=== PATIENT | female | born 1965 | race American Indian/Alaskan Native ===

== ENCOUNTER 2019-06-19 11:50 | Emergency (ER) | payer BC ==
[2019-06-19] MEDS ORDERED: FIORICET PO ONE (12:39)
--- NOTE | 2019-06-19 13:04 | Emergency Department Report ---
HPI - General Chief Complaint: Anxiety Time Seen by Provider: 06/19/19 12:33 - HPI HPI: Room 25 The patient is a 53-year-old female presenting with a chief complaint of near syncopal episode. The patient is the daughter the patient currently in room 21. The patient's father is critically ill at the time of evaluation patient's father was DO NOT RESUSCITATE. She states she visualized her father. Breathing and this made her feel short of breath. Patient states she stood up and felt lightheaded went to the ground and sat on the floor. The patient states she never lost consciousness. The patient states she was awake but her eyes were closed and she could hear everything. The patient now complains of headache and gives it a score of 6/10 Location: [See above] Duration: [See above] Quality: [See above] Severity: [See above] Timing: [See above] Context: [See above] Modifying factors: [See above] Associated signs and symptoms: [see above] ED Past Medical Hx - Past Medical History Previous Medical History?: Yes Hx Hypertension: Yes (27 YEARS, Denies CP) Hx Asthma: No Additional medical history: anxiety - Surgical History Past Surgical History?: Yes Hx Cholecystectomy: Yes (2010) Additional Surgical History: Right ankle surgery - Family History Family history: no significant - Social History Smoking Status: Never Smoker Substance Use Type: None (denies illicit drug use) - Medications Home Medications: Home Medications Medication Instructions Recorded Confirmed Last Taken Type Triamter/Hctz 75-50 mg (Nf) 1 tab PO QDAY 10/08/14 10/22/14 10/21/14 07:30 History [Maxzide 75-50 mg] HYDROcodone/APAP 5-325 [[place] 1 each PO Q6HR PRN #60 tablet 10/22/14 Unknown Rx 5-325 mg TAB] ED Review of Systems ROS: Stated complaint: PASSED OUT Other details as noted in HPI Constitutional: no symptoms reported Eyes: denies: eye pain ENT: denies: throat pain Respiratory: shortness of breath Cardiovascular: denies: chest pain Endocrine: no symptoms reported Gastrointestinal: denies: abdominal pain Genitourinary: denies: dysuria Musculoskeletal: denies: back pain Neurological: other (lightheadedness) Physical Exam - Physical Exam Vital Signs: Vital Signs 06/19/19 11:50 Temperature 98.3 F Pulse Rate 94 H Respiratory 20 Rate Blood Pressure 169/70 O2 Sat by Pulse 98 Oximetry Vital Signs 06/19/19 06/19/19 06/19/19 11:50 11:54 12:00 Temperature 98.3 F Pulse Rate 94 H Pulse Rate [ Lying] Respiratory 20 Rate Blood Pressure 169/70 169/70 148/86 Blood Pressure [Lying] O2 Sat by Pulse 98 Oximetry 06/19/19 06/19/19 06/19/19 12:16 12:30 12:46 Temperature Pulse Rate 93 H 97 H 93 H Pulse Rate [ Lying] Respiratory 16 17 16 Rate Blood Pressure 148/86 157/92 157/92 Blood Pressure [Lying] O2 Sat by Pulse 100 100 99 Oximetry 06/19/19 06/19/19 06/19/19 13:00 13:16 13:30 Temperature Pulse Rate 91 H 95 H Pulse Rate [ Lying] Respiratory 10 L 14 Rate Blood Pressure 151/91 151/91 151/91 Blood Pressure [Lying] O2 Sat by Pulse 100 100 Oximetry 06/19/19 06/19/19 06/19/19 13:46 14:00 14:16 Temperature Pulse Rate 85 101 H 82 Pulse Rate [ Lying] Respiratory 12 13 11 L Rate Blood Pressure 151/91 162/92 162/92 Blood Pressure [Lying] O2 Sat by Pulse 100 99 100 Oximetry 06/19/19 06/19/19 14:30 14:59 Temperature Pulse Rate 81 Pulse Rate [ 84 Lying] Respiratory 11 L Rate Blood Pressure 167/92 Blood Pressure 149/76 [Lying] O2 Sat by Pulse 100 Oximetry Physical Exam: GENERAL: The patient is well-developed well-nourished female lying on stretcher not appearing to be in acute distress. [] HEENT: Normocephalic. Atraumatic. Extraocular motions are intact. Patient has moist mucous membranes. NECK: Supple. Trachea midline. No axial tenderness to palpation CHEST/LUNGS: Clear to auscultation. There is no respiratory distress noted. HEART/CARDIOVASCULAR: Regular. There is no tachycardia. There is no gallop rub or murmur. ABDOMEN: Abdomen is soft, nontender. Patient has normal bowel sounds. There is no abdominal distention. SKIN: There is no rash. There is no edema. There is no diaphoresis. NEURO: The patient is awake, alert, and oriented. The patient is cooperative. The patient has no focal neurologic deficits. The patient has normal speech. Cranial nerves II through XII grossly intact, no drift MUSCULOSKELETAL: There is no evidence of acute injury. ED Course Vital Signs 06/19/19 11:50 Temperature 98.3 F Pulse Rate 94 H Respiratory 20 Rate Blood Pressure 169/70 O2 Sat by Pulse 98 Oximetry - Reevaluation(s) Reevaluation #1: 06/19/19 14:[address] head ED Medical Decision Making - Lab Data Result diagrams: 06/19/19 13:13 06/19/19 13:13 Laboratory Tests 06/19/19 06/19/19 06/19/19 12:05 13:13 13:13 WBC 5.3 RBC 4.58 Hgb 13.5 Hct 39.9 MCV 87 MCH 30 MCHC 34 RDW 14.1 Plt Count 170 Lymph % (Auto) 34.7 [place] % (Auto) 6.1 Eos % (Auto) 0.8 Baso % (Auto) 1.7 Lymph # 1.8 [place] # 0.3 Eos # 0.0 Baso # 0.1 Seg Neutrophils % 56.7 Seg Neutrophils # 3.0 Sodium 142 Potassium 3.1 L Chloride 101.1 Carbon Dioxide 27 Anion Gap 17 BUN 10 Creatinine 1.0 Estimated GFR > 60 BUN/Creatinine Ratio 10 Glucose 112 H POC Glucose 97 Calcium 9.7 Total Creatine Kinase 144 H CK-MB (CK-2) 2.8 CK-MB (CK-2) Rel Index 1.9 Troponin T < 0.010 - Differential Diagnosis vasovagal episode, dysrhythmia, electrolyte imbalance Critical care attestation.: If time is entered above; I have spent that time in minutes in the direct care of this critically ill patient, excluding procedure time. ED Disposition Clinical Impression: Vasovagal near syncope, Hypokalemia Disposition: -01 TO HOME OR SELFCARE Is pt being admited?: No Does the pt Need Aspirin: No Condition: Stable Additional Instructions: Return to the emergency department should you develop worsening symptoms, inability to tolerate food or liquids, high fever or any other concerns Referrals: TOYIN GOMEZ MD [Primary Care Provider] - 3-5 Days Time of Disposition: 15:03
[2019-06-19 13:41] LABS: Basophils # (Auto) 0.1 K/mm3 (0.0-0.1); Basophils % (Auto) 1.7 % (0.0-1.8); Eosinophils % (Auto) 0.8 % (0.0-4.3); Hematocrit 39.9 % (30.3-42.9); Hemoglobin 13.5 gm/dl (10.1-14.3); Lymphocytes # (Auto) 1.8 K/mm3 (1.2-5.4); Lymphocytes % (Auto) 34.7 % (13.4-35.0); Mean Corpuscular HGB Conc 34 % (30-34); Mean Corpuscular Volume 87 fl (79-97); Monocytes # (Auto) 0.3 K/mm3 (0.0-0.8); Monocytes % (Auto) 6.1 % (0.0-7.3); Platelet Count 170 K/mm3 (140-440); Red Blood Count 4.58 M/mm3 (3.65-5.03); Red Cell Distribution Width 14.1 % (13.2-15.2)
[2019-06-19 14:18] LABS: Creatine Kinase MB 2.8 ng/mL (0.0-4.0)
[2019-06-19 14:20] LABS: BUN/Creatinine Ratio 10; Blood Urea Nitrogen 10 mg/dL (7-17); Calcium 9.7 mg/dL (8.4-10.2); Hemolysis Index 1
[2019-06-19] MEDS ORDERED: K-DUR PO ONE (14:36)
[2019-06-19 15:27] VITALS: BP 167/92
== END 2019-06-19 15:27 | disposition home or self-care (01) ==
LOC: ED 11:50
DX: R55 Syncope and collapse (principal); R51 Headache; E87.6 Hypokalemia; I10 Essential (primary) hypertension; F41.9 Anxiety disorder, unspecified; Z90.49 Acquired absence of other specified parts of digestive tract; Z98.890 Other specified postprocedural states; Z88.5 Allergy status to narcotic agent; Z88.2 Allergy status to sulfonamides
CPT/HCPCS: 36415; 80048; 82550; 82553; 82962; 84484; 85025; 93005; 93010